=== PATIENT | female | born 1950 ===

== ENCOUNTER 2016-07-29 20:26 | Emergency (ER) | payer OTHER, BC ==
[~2016-07-29] VITALS: Ht 154.9 cm; Wt 66.2 kg
[2016-07-29 22:15] VITALS: BP 137/68
== END 2016-07-29 22:15 | disposition home or self-care (01) ==
LOC: ED 20:26
DX: L03.116 Cellulitis of left lower limb (principal); J45.909 Unspecified asthma, uncomplicated
CPT/HCPCS: J0690; Q0092